=== PATIENT | male | born 1980 | race Two or more races ===

== ENCOUNTER 2016-06-02 23:42 | Emergency (ER) | payer SELFPAY ==
[2016-06-03] MEDS ORDERED: IBUPROFEN 600 MG TAB PO ONE (00:19)
--- NOTE | 2016-06-03 00:36 | EDPHY ---
H & P Time Seen by Provider: 06/03/16 00:35 HPI/ROS: This is a 36-year-old male presenting to the emergency department complaining of tooth infection left-sided facial swelling x2 days. Patient states he has had a broken tooth in that area for 2 years now. Facial swelling worsening this morning, denies any fever chills. REVIEW OF SYSTEMS: Constitutional: No fever no chills ENT: Left-sided facial cheek swelling tooth ache Respiratory: No shortness of breath Cardiac: No chest pain Skin: No rash Neurological: No headache or dizziness Smoking Status: Never smoked Physical Exam: CONSTITUTIONAL: patient appeared well nourished, non-ill appearing and normally developed. No acute distress. Vital signs as documented. HEENT: Normocephalic atraumatic. Left-sided facial swelling erythema. Multiple dental caries and broken tooth gum tenderness on palpation. No drooling noted no trismus Oropharynx normal NECK: Supple, FROM without pain RESP: Non-labored resp effort NEURO: AAOx3 EXTREMITIES: FROM without pain or difficulty. Positive cms intact SKIN: Warm and dry no rash PSYCH: Normal affect, calm, no distress Constitutional: Initial Vital Signs Temperature (C) 37.1 C 06/02/16 23:51 Heart Rate 86 06/02/16 23:51 Respiratory Rate 16 06/02/16 23:51 Blood Pressure 122/82 H 06/02/16 23:51 O2 Sat (%) 95 06/02/16 23:51 O2 Delivery Mode Room Air Allergies/Adverse Reactions: flu vaccine Allergy (Uncoded 06/02/16 23:49) Home Medications: Medication Instructions Recorded Ibuprofen 06/02/16 Clindamycin HCl 300 mg PO TID #30 capsule 06/03/16 oxyCODONE HCL/ACETAMINOPHEN 1 each PO Q4HRS WHILE AWAKE #15 06/03/16 [Percocet 5-325 mg Tablet] tablet Medical Decision Making ED Course/Re-evaluation: Discussed plan of care: CBC, Chem 7, Dilaudid given for pain, facial CT to rule out facial abscess 0200: Discussed CT findings with patient and discharge instructions. Discharge home---> stable Differential Diagnosis: Differential diagnosis considered but not limited to periapical abscess, cellulitis and Nilesh's angina - Data Points Laboratory Results: Laboratory Results 06/03/16 00:44 06/03/16 00:44 06/03/16 06/03/16 06/03/16 00:52 00:44 00:44 WBC 8.20 10^3/uL 10^3/uL (3.80-9.50) RBC 4.74 10^6/uL 10^6/uL (4.40-6.38) Hgb 14.7 g/dL g/dL (13.7-17.5) POC Hgb 14.3 gm/dL L gm/dL (14.5-17.3) Hct 42.8 % % (40.0-51.0) POC Hct 42 % L % (42.8-50.6) MCV 90.3 fL fL (81.5-99.8) MCH 31.0 pg pg (27.9-34.1) MCHC 34.3 g/dL g/dL (32.4-36.7) RDW 12.6 % % (11.5-15.2) Plt Count 150 10^3/uL 10^3/uL (150-400) MPV 10.9 fL fL (8.7-11.7) Neut % (Auto) 66.1 % % (39.3-74.2) Lymph % (Auto) 24.3 % % (15.0-45.0) Clinch % (Auto) 8.5 % % (4.5-13.0) Eos % (Auto) 0.7 % % (0.6-7.6) Baso % (Auto) 0.2 % L % (0.3-1.7) Nucleat RBC Rel Count 0.0 % % (0.0-0.2) Absolute Neuts (auto) 5.41 10^3/uL 10^3/uL (1.70-6.50) Absolute Lymphs (auto) 1.99 10^3/uL 10^3/uL (1.00-3.00) Absolute Monos (auto) 0.70 10^3/uL 10^3/uL (0.30-0.80) Absolute Eos (auto) 0.06 10^3/uL 10^3/uL (0.03-0.40) Absolute Basos (auto) 0.02 10^3/uL 10^3/uL (0.02-0.10) Absolute Nucleated RBC 0.00 10^3/uL 10^3/uL (0-0.01) Immature Gran % 0.2 % % (0.0-1.1) Immature Gran # 0.02 10^3/uL 10^3/uL (0.00-0.10) POC Sodium 142 mEq/L mEq/L (134-144) Sodium 142 mEq/L mEq/L (134-144) POC Potassium 3.8 mEq/L mEq/L (3.3-5.0) Potassium 4.2 mEq/L mEq/L (3.5-5.2) POC Chloride 107 mEq/L mEq/L (96-108) Chloride 109 mEq/L mEq/L (97-110) Carbon Dioxide 24 mEq/l mEq/l (22-31) Anion Gap 9 mEq/L mEq/L (8-16) POC BUN 20 mg/dL mg/dL (7-23) BUN 20 mg/dL mg/dL (7-23) Creatinine 0.7 mg/dL mg/dL (0.7-1.3) POC Creatinine 0.7 mg/dL L mg/dL (0.8-1.5) Estimated GFR > 60 Glucose 109 mg/dL H mg/dL (70-100) POC Glucose 110 mg/dL H mg/dL (70-100) Calcium 9.0 mg/dL mg/dL (8.5-10.4) Medications Given: Discontinued Medications Hydromorphone HCl (Dilaudid) 0.5 mg IVP EDNOW ONE Stop: 06/03/16 00:42 Last Admin: 06/03/16 00:48 Dose: 0.5 mg Clindamycin Phosphate/Dextrose (Cleocin 900 Mg (Premix)) 50 mls @ 100 mls/hr IV ONCE ONE PRN Reason: Protocol Stop: 06/03/16 01:37 Last Admin: 06/03/16 01:38 Dose: 50 mls Sodium Chloride (Ns) 1,000 mls @ 0 mls/hr IV ONCE ONE PRN Reason: Wide Open Stop: 06/03/16 01:09 Last Admin: 06/03/16 01:38 Dose: 1,000 mls Ibuprofen (Motrin) 600 mg PO EDNOW ONE Stop: 06/03/16 00:20 Last Admin: 06/03/16 00:24 Dose: 600 mg Point of Care Test Results: 06/03/16 00:52 POC Sodium 142 POC Potassium 3.8 POC Chloride 107 POC BUN 20 POC Creatinine 0.7 L POC Glucose 110 H Departure - Departure Disposition: Home, Routine, Self-Care Clinical Impression: Tooth infection, Dental abscess Condition: Good Instructions: Dental Abscess (ED), Dental Caries (ED) Additional Instructions: 1. Take all prescribed antibiotics 2. He can take ibuprofen 600 mg every 6-8 hours as needed, Tylenol 500 mg- 1000mg every 6 hours as needed 3. I have given you resources for dental call one of those clinics for follow- up 4. You can also use a warm compress to facial area as needed Referrals: Michael Kevin MD [Primary Care Provider] - As per Instructions Prescriptions: oxyCODONE HCL/ACETAMINOPHEN [Percocet 5-325 mg Tablet] 1 each PO Q4HRS WHILE AWAKE #15 tablet Clindamycin HCl 300 mg PO TID #30 capsule
[2016-06-03] MEDS ORDERED: HYDROmorphONE/DILAUDID 1 MG/ML SYR IVP ONE (00:41)
[2016-06-03 00:53] LABS: % IMMATURE GRANULYOCYTES 0.2 % (0.0-1.1); ABSOLUTE IMMATURE GRANULOCYTES 0.02 10^3/uL (0.00-0.10); ADD DIFF? NO; ADD MORPH? NO; ADD SCAN? NO; ATYPICAL LYMPHOCYTE FLAG 10 (0-99); FRAGMENT RBC FLAG 0 (0-99); HEMATOCRIT 42.8 % (40.0-51.0); HEMOGLOBIN 14.7 g/dL (13.7-17.5); LEFT SHIFT FLG 10 (0-99); LIPEMIA HEMOLYSIS FLAG 90 (0-99); MEAN CELL HEMOGLOBIN CONCENTR. 34.3 g/dL (32.4-36.7); MEAN CELL VOLUME 90.3 fL (81.5-99.8); MEAN PLATELET VOLUME 10.9 fL (8.7-11.7); PLATELET CLUMPS FLAG 20 (0-99); PLATELET COUNT 150 10^3/uL (150-400); RED BLOOD CELL COUNT 4.74 10^6/uL (4.40-6.38); RED CELL DISTRIBUTION WIDTH 12.6 % (11.5-15.2)
[2016-06-03 01:03] LABS: ANION GAP 9 mEq/L (8-16); CARBON DIOXIDE 24 mEq/l (22-31); CHLORIDE 109 mEq/L (97-110); CREATININE 0.7 mg/dL (0.7-1.3); GLOMERULAR FILTRATION RATE > 60; GLUCOSE 109 mg/dL (70-100); POTASSIUM 4.2 mEq/L (3.5-5.2); SODIUM 142 mEq/L (134-144)
[2016-06-03] MEDS ORDERED: IOPAMIDOL (ISOVUE-300) 100 ML BTL IV ONE ×2 (01:05→01:17)
[2016-06-03] MEDS ORDERED: CLINDAMYCIN 900 MG/DEXTROSE 50 ML IV ONE (01:08)
[2016-06-03] MEDS ORDERED: NS 1,000 ML IV ONE (01:08)
[2016-06-03] MEDS ORDERED: OXYCODONE/APAP 5/325MG PREPACK#4 BTL TAKEHOME ONE (02:11)
[2016-06-03 02:33] VITALS: BP 100/50; PULSE 85; RESP 18; TEMP 98.2; O2SAT 95
== END 2016-06-03 02:31 | disposition home or self-care (01) ==
DX: K04.7 Periapical abscess without sinus (principal)
CPT/HCPCS: 82947-QW; 96365; J1170; Q9967